=== PATIENT | female | born 1980 | race Caucasian/White ===

== ENCOUNTER 2016-09-06 08:11 | Emergency (ER) | payer BC ==
[2016-09-06 08:30] VITALS: BP 123/76
--- NOTE | 2016-09-06 09:28 | UC ---
Laquita Waggoner Janilya, [facility] on 09/06/16 at 0915 . Throat Pain/Nasal Fidel HPI - HPI Summary HPI Summary: Nurse's note: STARTED WITH SORE THROAT LAST NIGHT AT MIDNIGHT. HAS HAD A COLD FOR ONE MONTH. IS ON LAST DAY OF ANTIBIOTICS FOR STREP THROAT. note: Vital signs are stable. Temperature is 100.9. Tachycardic at 110. Positive for strep. recently had strep. 5/10 pain. Occasional EtOH, non- smoker. PMHx of migraines. No known allergies, no known medication. Visit history is non-contributory to present problem. HPI: A 36 y/o female came in to [facility] presenting w/ a gradual onset of constant sore throat starting last night. It is not too difficult to swallow. Pt reports fever last night, productive phlegmy cough for the last 3 weeks. Now pt feels achy, cold, and nauseous. Pt denies sinus pain but sinus discomfort. Pt states that she has had a cold for quite a while. Pt's had strep throat a week and a half ago. Pt did not have her tonsils out. - History of Current Complaint Chief Complaint: UCRespiratory Stated Complaint: SORE THROAT FEVER NAUSEA Time Seen by Provider: 09/06/16 08:31 Hx Obtained From: Patient Hx Last Menstrual Period: HAVING IT NOW Onset/Duration: Gradual Onset, Lasting Days, Still Present Severity: Moderate - Allergies/Home Medications Allergies/Adverse Reactions: Allergies Allergy/AdvReac Type Severity Reaction Status Date / Time No Known Allergies Allergy Verified 09/06/16 08:26 Home Medications: Home Medications Ibuprofen TAB* [Advil TAB*] 2 tab PO TID PRN 09/06/16 [History Confirmed ] PMH/Surg Hx/FS Hx/Imm Hx Previously Healthy: Yes Endocrine History Of: Denies: Diabetes, Thyroid Disease Cardiovascular History Of: Denies: Cardiac Disorders, Hypertension Respiratory History Of: Denies: COPD, Asthma GI/ History Of: Denies: Ulcer - Surgical History Surgical History: None - Family History Known Family History: Positive: Cardiac Disease, Hypertension, Diabetes - Social History Occupation: Employed Full-time - occupational therapist Lives: With Family Alcohol Use: Occasionally Substance Use Type: None Smoking Status (MU): Never Smoked Tobacco Review of Systems Constitutional: Fever Skin: Negative Eyes: Negative ENT: Sore Throat, Other - sinus discomfort Respiratory: Cough Cardiovascular: Negative Gastrointestinal: Other - nausea Genitourinary: Negative Motor: Negative Neurovascular: Negative Musculoskeletal: Arthralgia - body aches, Myalgia - body aches Neurological: Negative Psychological: Negative All Other Systems Reviewed And Are Negative: Yes Physical Exam Triage Information Reviewed: Yes Appearance: Well-Appearing, No Pain Distress, Well-Nourished Vital Signs: Initial Vital Signs Temp 100.9 F 09/06/16 08:26 Pulse 110 09/06/16 08:26 Resp 16 09/06/16 08:26 BP 123/76 09/06/16 08:26 Pulse Ox 100 09/06/16 08:26 Vital Signs Reviewed: Yes Eyes: Positive: Conjunctiva Clear ENT: Positive: Hearing grossly normal, Pharynx normal, TMs normal, Other: - 2+ ANTERIOR ADENOPATHY. POSTERIOR ERYTHEMA WITH EXUDATES ON LEFT TONSIL MORE THAN RIGHT. Negative: Muffled/hoarse voice Neck: Positive: Supple, Nontender Respiratory: Positive: Chest non-tender, Lungs clear, Normal breath sounds, No respiratory distress Cardiovascular: Positive: RRR, No Murmur Abdomen Description: Positive: Nontender, No Organomegaly, Soft Bowel Sounds: Positive: Present Musculoskeletal: Positive: Strength Intact Neurological: Positive: Alert Psychological: Positive: Age Appropriate Behavior Skin: Negative: rashes Throat Pain/Nasal Course/Dx - Differential Dx/Diagnosis Differential Diagnosis/HQI/PQRI: Pharyngitis, URI, Other - Strep Provider Diagnoses: Strep throat Discharge - Discharge Plan Condition: Stable Disposition: HOME Prescriptions: Amoxicillin (*) 875 mg PO BID #20 tab MDD 2 Dexamethasone TAB* [Decadron TAB*] 4 mg PO DAILY #4 tab MDD 2 Lidocaine 2% VISCOUS* 5 ml MT BID #1 btl MDD 10 cc Patient Education Materials: Strep Throat (ED) Referrals: Dulce Maria Diaz MD [Primary Care Provider] - Additional Instructions: STREP THROAT: WE DISCUSSED: YOU HAVE STREP THROAT. RECHECK FOR INCREASED PAIN, TEMPERATURE, DIFFICULTY SWALLOWING OR IF YOU ARE NOT IMPROVING IN 5 DAYS. KEEP THROAT MOIST WITH LOZENGES; TEA AND HONEY. USE WARM WATER GARGLES 3-4 TIMES A DAY. CEPASTAT LOZENGES FOR MODERATE PAIN. TYLENOL FOR DISCOMFORT. USEFUL HOME REMEDIES: WARM WATER GARGLES, WITH TSP OF SALT PER 8 OUNCES OF WATER, GARGLE FOR A FEW SECONDS AND SPIT OUT; GARGLE AND SPIT OUT; EVERY THREE HOURS. AND/OR: WARM WATER OR TEA, HONEY AND LEMON; 2-3 CUPS A DAY. FOLLOW UP IN 10 DAYS NEEDED. SOONER IF INCREASED PAIN, TEMPERATURE, DIFFICULTY BREATHING OR SWALLOWING. PRESCRIPTIONS: VISCOUS XYLOCAINE 2% #100CC SI ML WITH 15ML WATER GARGLES ONE TO THREE TIMES A DAY FOR THROAT PAIN . GARGLE AND SPIT OUT. FOR SEVERE SORE THROAT: Dexamethasone tab 4 mg Label: two tablets daily FOR TWO DAYS Disp: 4 The documentation as recorded by the Laquita paez Janilya accurately reflects the service I personally performed and the decisions made by , Avery Pryor MD.
== END 2016-09-06 09:32 | disposition home or self-care (01) ==
LOC: UCEAST 08:11
DX: J02.0 Streptococcal pharyngitis (principal)
CPT/HCPCS: 87651; 99212; G0463

== ENCOUNTER 2017-07-15 20:35 | Emergency (ER) | payer BC ==
[2017-07-16 00:05] VITALS: BP 120/62
--- NOTE | 2017-07-27 02:55 | ED ---
Vijaya Waggoner Gabriel, scribed for Gavin Benoit MD on 07/15/17 at 2138 . GI/ HPI - HPI Summary HPI Summary: This patient is a 36 year old F presenting to [facility] with a chief complaint of vaginal discharge since earlier today. Patient states she is 16 weeks and had amniocentesis at 1100 yesterday. She also reports and there is some leakage today and it is soaking into her underwear. Ab1 - History of Current Complaint Chief Complaint: EDOBProblems Time Seen by Provider: 07/15/17 21:27 Stated Complaint: SENT BY OB/16 WKS PREG Hx Obtained From: Patient Hx Last Menstrual Period: HAVING IT NOW Onset/Duration: Started Days Ago - 1, Still Present Timing: Constant Severity: Mild Current Severity: Mild Pain Intensity: 0 Associated Signs and Symptoms: Positive: Other: - increased vaginal discharge - Allergy/Home Medications Allergies/Adverse Reactions: Allergies Allergy/AdvReac Type Severity Reaction Status Date / Time No Known Allergies Allergy Verified 09/06/16 08:26 PMH/Surg Hx/FS Hx/Imm Hx Previously Healthy: No Endocrine/Hematology History: Denies: Hx Diabetes, Hx Thyroid Disease Cardiovascular History: Denies: Hx Hypertension Respiratory History: Denies: Hx Asthma, Hx Chronic Obstructive Pulmonary Disease (COPD) GI History: Denies: Hx Ulcer Infectious Disease History: No Infectious Disease History: Denies: Hx Clostridium Difficile, Hx Hepatitis, Hx Human Immunodeficiency Virus (HIV), Hx of Known/Suspected MRSA, Hx Shingles, Hx Tuberculosis, Hx Known/ Suspected VRE, Hx Known/Suspected VRSA, History Other Infectious Disease, Traveled Outside the [place] in Last 30 Days - Family History Known Family History: Positive: Cardiac Disease, Hypertension, Diabetes - Social History Lives: With Family Alcohol Use: Occasionally Substance Use Type: Reports: None Smoking Status (MU): Never Smoked Tobacco Review of Systems Negative: Fever Positive: other - increased vaginal discharge All Other Systems Reviewed And Are Negative: Yes Physical Exam - Summary Physical Exam Summary: VITAL SIGNS: Reviewed. GENERAL: ~Patient is a well-developed and nourished female who is lying comfortable in the stretcher. Patient is not in any acute respiratory distress. HEAD AND FACE: No signs of trauma. No ecchymosis, hematomas or skull depressions. No sinus tenderness. EYES: PERRLA, EOMI x 2, No injected conjunctiva, no nystagmus. EARS: Hearing grossly intact. Ear canals and tympanic membranes are within normal limits. MOUTH: Oropharynx within normal limits. NECK: Supple, trachea is midline, no adenopathy, no JVD, no carotid bruit, no c- spine tenderness, neck with full ROM. CHEST: Symmetric, no tenderness at palpation LUNGS: Clear to auscultation bilaterally. No wheezing or crackles. CVS: Regular rate and rhythm, S1 and S2 present, no murmurs or gallops appreciated. ABDOMEN: Soft, non-tender. No signs of distention. No rebound no guarding, and no masses palpated. Bowel sounds are normal. EXTREMITIES: FROM in all major joints, no edema, no cyanosis or clubbing. NEURO: Alert and oriented x 3. No acute neurological deficits. Speech is normal and follows commands. SKIN: Dry and warm Pelvic exam: external genital looks normal, speculum shows mild, white discharge that is odorless. Swab from posterior fornix sent for ROM test Triage Information Reviewed: Yes Vital Signs On Initial Exam: Initial Vitals Temp Pulse Resp BP Pulse Ox 98.6 F 90 16 123/81 99 07/15/17 20:38 07/15/17 20:38 07/15/17 20:38 07/15/17 20:38 07/15/17 20:38 Vital Signs Reviewed: Yes Diagnostics - Vital Signs Vital Signs Temp Pulse Resp BP Pulse Ox 07/15/17 20:38 98.6 F 90 16 123/81 99 - Laboratory Lab Statement: Any lab studies that have been ordered have been reviewed, and results considered in the medical decision making process. GIGU Course/Dx - Course Assessment/Plan: This patient is a 36 year old F presenting to [facility] with a chief complaint of vaginal discharge since earlier today. Patient states she is 16 weeks and had amniocentesis at 1100 yesterday. She also reports and there is some leakage today and it is soaking into her underwear. Ab1. Test results with no significant abnormalities. We discussed patient care with Dr. Hawley and they recommended to discharge her home and they will follow up tomorrow. Patient will be discharged with follow up from Dr. Hawley. The patient is agreeable with this plan. - Diagnoses Provider Diagnoses: rule out amniotic fluid leak - Physician Notifications Time Discussed With Above Provider: 23:23 Instructed by Provider To: Other - Discussed patient care with Dr. Hawley, patients OB/ RN CLINICAL COORDINATOR. They recommend to discharge the patient home and they will follow up with her tomorrow Discharge - Discharge Plan Condition: Stable Disposition: HOME Referrals: Dulce Maria Diaz MD [Primary Care Provider] - Additional Instructions: You will be contacted by Dr. Hawley tomorrow for follow up. Please return to the emergency room for new or worsening symptoms. The documentation as recorded by the Vijaya paez Gabriel accurately reflects the service I personally performed and the decisions made by , Gavin Benoit MD.
== END 2017-07-15 23:50 | disposition home or self-care (01) ==
LOC: ED 20:35
DX: O26.892 Other specified pregnancy related conditions, second trimester (principal); Z3A.16 16 weeks gestation of pregnancy
CPT/HCPCS: 84112; 99282

== ENCOUNTER 2019-01-09 07:54 | Emergency (ER) | payer BC ==
[2019-01-09 08:07] VITALS: BP 119/80
--- NOTE | 2019-01-09 08:43 | UC ---
Throat Pain/Nasal Fidel HPI - HPI Summary HPI Summary: One day history of scratchy sore throat, no fever, no headahce or cough, + malaise. Daughter dx with strep 5 days ago. - History of Current Complaint Chief Complaint: UCGeneralIllness Stated Complaint: SORE THROAT Time Seen by Provider: 01/09/19 08:02 Hx Obtained From: Patient Hx Last Menstrual Period: December 26 Onset/Duration: Sudden Onset, Lasting Hours Severity: Mild Pain Intensity: 1 Cough: None Associated Signs & Symptoms: Positive: Dysphagia, Hoarseness - Epiglottits Risk Factors Epiglottis Risk Factors: Negative - Allergies/Home Medications Allergies/Adverse Reactions: Allergies Allergy/AdvReac Type Severity Reaction Status Date / Time banana Allergy Vomiting Verified 01/09/19 08:07 AVACADO Allergy Vomiting Uncoded 01/09/19 08:07 Home Medications: Home Medications Cetirizine* [ZyrTEC 10 MG TAB*] 10 mg PO DAILY 01/09/19 [History Confirmed 01/09] Ibuprofen TAB* [Advil TAB*] 400 mg PO Q6H PRN 01/09/19 [History Confirmed ] PMH/Surg Hx/FS Hx/Imm Hx Previously Healthy: Yes - Surgical History Surgical History: Yes Surgery Procedure, Year, and Place: MOLE REMOVALS - Family History Known Family History: Positive: None, Cardiac Disease, Hypertension, Diabetes - Social History Occupation: Employed Full-time - SAHM Lives: With Family Alcohol Use: Weekly Substance Use Type: None Smoking Status (MU): Never Smoked Tobacco Review of Systems All Other Systems Reviewed And Are Negative: Yes Constitutional: Positive: Fatigue ENT: Positive: Sore Throat Respiratory: Negative: Cough Neurological: Negative: Headache Psychological: Positive: Negative Is Patient Immunocompromised?: No Physical Exam Triage Information Reviewed: Yes Appearance: No Pain Distress, Ill-Appearing - mildly unwell Vital Signs: Initial Vital Signs Temp 98.8 F 01/09/19 08:02 Pulse 95 01/09/19 08:02 Resp 16 01/09/19 08:02 BP 119/80 01/09/19 08:02 Pulse Ox 99 01/09/19 08:02 Eyes: Positive: Conjunctiva Clear ENT: Positive: Pharyngeal erythema, Tonsillar swelling - mild, no exudate Dental Exam: Normal Neck: Positive: Enlarged Nodes @ - mildly tender and enlarged tonsillar nodes. Respiratory: Positive: Lungs clear, Normal breath sounds Cardiovascular: Positive: RRR, No Murmur Musculoskeletal Exam: Normal Neurological Exam: Normal Psychological Exam: Normal Skin Exam: Normal Diagnostics - Laboratory Lab Results: rapid strep positive Throat Pain/Nasal Course/Dx - Course Course Of Treatment: amoxicillin for treatment of strep - Differential Dx/Diagnosis Differential Diagnosis/HQI/PQRI: Laryngitis, Pharyngitis, Tonsillitis, URI Provider Diagnosis: Strep throat Discharge - Sign-Out/Discharge Documenting (check all that apply): Patient Departure All imaging exams completed and their final reports reviewed: No Studies - Discharge Plan Condition: Good Disposition: HOME Prescriptions: Amoxicillin PO (*) [Amoxicillin 875 MG (*)] 875 mg PO BID #20 tab Referrals: No Primary Care Phys,NOPCP [Primary Care Provider] - - Billing Disposition and Condition Condition: GOOD Disposition: Home
== END 2019-01-09 08:57 | disposition home or self-care (01) ==
LOC: UCEAST 07:54
DX: J02.0 Streptococcal pharyngitis (principal)
CPT/HCPCS: 87651; 99212; G0463